=== PATIENT | male | born 1960 | race African-American/Black ===

== ENCOUNTER 2016-09-13 14:48 | Emergency (ER) | payer OTHER ==
[~2016-09-13 14:48] MED LIST: TRAZODONE HCL50 MG PO
== END 2016-09-13 14:58 | disposition left against medical advice (07) ==
LOC: EME 14:48
DX: N50.819 Testicular pain, unspecified (principal); Z53.21 Procedure and treatment not carried out due to patient leaving prior to being seen by health care provider